=== PATIENT | male | born 1950 | race Caucasian/White ===

== ENCOUNTER → 2023-11-29 11:45 | Outpatient (REF) | payer BC, SELFPAY ==
[2023-11-29 14:09] LABS: % Basophils 0.9 % (0-2); % Eosinophils 4.2 % (0-6); % Immature Granulocytes 0.6 % (0-0.5); % Lymphocytes 26.9 % (20.5-51.1); % Monocytes 8.5 % (1.7-9.3); % Neutrophils 58.9 % (42.2-75.2); Absolute Basophils 0.1 10^3/uL (0-0.2); Absolute Eosinophils 0.4 10^3/uL (0-0.7); Absolute Immature Granulocytes 0.1 10^3/uL (0-0.05); Absolute Lymphocytes 2.8 10^3/uL (1.2-3.4); Absolute Monocytes 0.9 10^3/uL (0.1-0.6); Absolute Neutrophils 6.1 10^3/uL (1.4-6.5); Hematocrit 48.2 % (39.0-52.0); Hemoglobin 15.4 g/dL (13.0-18.0); Mean Corpuscular Hgb 29.3 pg (27.0-31.0); Mean Corpuscular Volume 91.8 fL (80.0-94.0); Mean Platelet Volume 9.8 fL (7.4-10.4); Nucleated Red Blood Cells % 0 % (-); Platelet Count 295 10^3/uL (130-400); Red Blood Cell Count 5.25 10^6/uL (4.70-6.10); Red Cell Dist. Width 14.4 % (11.5-14.5); White Blood Cell Count 10.4 10^3/uL (4.8-10.8)
== END ==
LOC: REG 11:45
PROVIDERS: ATTENDING PHYSICIAN Family Medicine
DX: R79.89 Other specified abnormal findings of blood chemistry (principal)
CPT/HCPCS: 36415; 85025

== ENCOUNTER → 2024-06-27 08:40 | Outpatient (REF) | payer BC, SELFPAY ==
[2024-06-27 09:18] LABS: % Basophils 0.9 % (0-2); % Eosinophils 5.7 % (0-6); % Immature Granulocytes 0.3 % (0-0.5); % Lymphocytes 25.1 % (20.5-51.1); % Monocytes 7.7 % (1.7-9.3); % Neutrophils 60.3 % (42.2-75.2); Absolute Basophils 0.1 10^3/uL (0-0.2); Absolute Eosinophils 0.5 10^3/uL (0-0.7); Absolute Lymphocytes 2.3 10^3/uL (1.2-3.4); Absolute Monocytes 0.7 10^3/uL (0.1-0.6); Absolute Neutrophils 5.5 10^3/uL (1.4-6.5); Hematocrit 47.7 % (39.0-52.0); Hemoglobin 15.6 g/dL (13.0-18.0); Mean Corp Hgb Conc. 32.7 g/dL (33.0-37.0); Mean Corpuscular Hgb 30.5 pg (27.0-31.0); Mean Corpuscular Volume 93.3 fL (80.0-94.0); Mean Platelet Volume 9.6 fL (7.4-10.4); Nucleated Red Blood Cells % 0 % (-); Platelet Count 273 10^3/uL (130-400); Red Blood Cell Count 5.11 10^6/uL (4.70-6.10); White Blood Cell Count 9.1 10^3/uL (4.8-10.8)
[2024-06-27 10:13] LABS: ALT (SGPT) 23 U/L (0-50); AST (SGOT) 26 U/L (17-59); Albumin 4.5 g/dl (3.5-5.0); Alkaline Phosphatase 81 U/L (38-126); Blood Urea Nitrogen 16 mg/dl (9-20); Calcium 10.1 mg/dl (8.4-10.2); Carbon Dioxide 27 mmol/L (22-30); Chloride 103 mmol/L (98-107); Glucose 120 mg/dl (70-99); HDL Cholesterol 40 mg/dl; LDL Cholesterol, Calculated 68 mg/dl; Potassium 4.8 mmol/L (3.5-5.1); Sodium 143 mmol/L (135-145); Total Bilirubin 0.6 mg/dl (0.2-1.3); Total Cholesterol 151 mg/dl (50-199); Total Protein 7.1 g/dl (6.3-8.2); Triglyceride 217 mg/dl (10-149); Very Low Density Lipoprotein 43 mg/dl (0-30); eGFR > 60.00
[2024-06-27 10:52] LABS: Glycohemoglobin (HgbA1c) 6.1 % (4.0-5.6)
[2024-06-29 02:45] LABS: PSA Total 0.7 ng/mL (0.0-4.0)
== END ==
LOC: REG 08:40
PROVIDERS: ATTENDING PHYSICIAN Family Medicine
DX: R73.03 Prediabetes (principal); E78.5 Hyperlipidemia, unspecified; Z12.5 Encounter for screening for malignant neoplasm of prostate; R79.89 Other specified abnormal findings of blood chemistry
CPT/HCPCS: 36415; 80053; 80061; 83036; 84153; 84154; 85025

== ENCOUNTER → 2024-09-30 14:38 | Outpatient (REF) | payer BC, SELFPAY | LOC: RAD 14:38 | PROVIDERS: ATTENDING PHYSICIAN Student in an Organized Health Care Education/Training Program; FAMILY PHYSICIAN Family Medicine | DX: I25.10 Atherosclerotic heart disease of native coronary artery without angina pectoris (principal); M62.89 Other specified disorders of muscle | CPT/HCPCS: 93922 ==

== ENCOUNTER → 2024-10-18 14:06 | Outpatient (REF) | payer BC, SELFPAY | LOC: RAD 14:06 | PROVIDERS: ATTENDING PHYSICIAN Student in an Organized Health Care Education/Training Program; FAMILY PHYSICIAN Family Medicine | DX: M62.89 Other specified disorders of muscle (principal) | CPT/HCPCS: 93925 ==

== ENCOUNTER → 2024-11-05 10:40 | Outpatient (REF) | payer BC, MEDICARE, SELFPAY ==
[2024-11-05 12:20] LABS: Blood Urea Nitrogen 15 mg/dl (9-20); Calcium 9.9 mg/dl (8.4-10.2); Carbon Dioxide 25 mmol/L (22-30); Chloride 102 mmol/L (98-107); Glucose 167 mg/dl (70-99); Potassium 4.1 mmol/L (3.5-5.1); Sodium 138 mmol/L (135-145); eGFR > 60.00
== END ==
LOC: REG 10:40
PROVIDERS: ATTENDING PHYSICIAN Surgery Vascular Surgery; FAMILY PHYSICIAN Family Medicine
DX: I73.9 Peripheral vascular disease, unspecified (principal)
CPT/HCPCS: 36415; 80048

== ENCOUNTER → 2024-11-19 08:27 | Outpatient (REF) | payer BC, MEDICARE, SELFPAY | LOC: RAD 08:27 | PROVIDERS: ATTENDING PHYSICIAN Surgery Vascular Surgery; FAMILY PHYSICIAN Family Medicine | DX: I73.9 Peripheral vascular disease, unspecified (principal) | CPT/HCPCS: 75635; Q9967 ==

== ENCOUNTER 2024-12-25 09:28 | Day surgery (SDC) | payer BC, MEDICARE, SELFPAY ==
[2024-12-25] VITALS (28 sets, daily range): BP systolic 110–149; BP diastolic 55–94; BMI 27.8
--- NOTE | 2024-12-25 09:57 | W.SUR.PREOP ---
Pre-Operative Surgical Note
-
I have examined this patient prior to the performance of the scheduled procedure.
The patient's condition is unchanged from the time of the current History and
Physical and the patient is able to undergo the scheduled procedure.
[2024-12-25] MEDS: NSS 500 IV (10:05)
[2024-12-25 10:16] LABS: Hematocrit 47.7 % (39.0-52.0); Hemoglobin 15.7 g/dL (13.0-18.0); Mean Corp Hgb Conc. 32.9 g/dL (33.0-37.0); Mean Corpuscular Hgb 30.4 pg (27.0-31.0); Mean Corpuscular Volume 92.3 fL (80.0-94.0); Mean Platelet Volume 9.4 fL (7.4-10.4); Platelet Count 293 10^3/uL (130-400); Red Blood Cell Count 5.17 10^6/uL (4.70-6.10); Red Cell Dist. Width 14.1 % (11.5-14.5); White Blood Cell Count 10.4 10^3/uL (4.8-10.8)
[2024-12-25 10:26] LABS: APTT 30.8 Sec (23.4-35.0); INR 0.88; PT 12.4 Sec (11.4-14.6)
[2024-12-25 10:31] LABS: Blood Urea Nitrogen 15 mg/dl (9-20); Calcium 9.9 mg/dl (8.4-10.2); Carbon Dioxide 26 mmol/L (22-30); Chloride 107 mmol/L (98-107); Estimated Creatinine Clearance 48 ml/min; Glucose 114 mg/dl (70-99); Potassium 4.3 mmol/L (3.5-5.1); Sodium 143 mmol/L (135-145); eGFR > 60.00
--- NOTE | 2024-12-25 11:27 | W.SUR.POST ---
Surgical Immediate Post Op
Note
Pre Op Diagnosis: PAD
Post Op Diagnosis: PAD
Procedure Performed: Aortogram, right common iliac artery angioplasty/stent and external iliac artery angioplasty/stent with [place] VBX
Primary Surgeon: Shahab
Anesthesia: Local and sedation
Estimated Blood Loss: Less than 2 cc
Fluids: See anesthesia flowsheet
Drains/Shunts: None
Specimens/Cultures: None
Doppler/Duplex/Angio (Y/N): Y
Complications: None
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
--- NOTE | 2024-12-25 11:51 | OR.RPT ---
Operative Report
Operative Report
PROCEDURE DATE: 12/25/2024
Preoperative diagnosis: Debilitating right buttock/thigh claudication.
Postoperative diagnosis: Same
Procedure:
1. Duplex assisted cannulation right common femoral artery.
2. Aortogram and pelvic angiogram.
3. Balloon angioplasty and stent placement with [place] VBX covered stent 8 mm x 59 mm right common iliac artery.
4. Balloon angioplasty and stent placement with [place] VBX covered stent 7 mm x 39 mm right external iliac artery.
5. Right femoral angiogram.
6. Supervision and interpretation.
Surgeon: Gudino
Top Lift Nailer: None
Complications: None
Anesthesia: Local, sedation
Fluoroscopy:
35 min
105 mGy
13.80 gy.cm2
Indications for procedure:
Severe right buttock thigh claudication especially when walking uphill or brisker places. CT angiogram demonstrated inflow right common and external iliac stenosis. Risk/benefits/alternatives of angiography fully discussed. Patient understood all
wished to proceed.
Description of procedure:
Patient was identified, brought to the operating room. Placed on the table in the supine position. After the adequate administration of anesthesia, the patient was prepped and draped in the standard surgical fashion. A standard preoperative
timeout was undertaken and everybody was in agreement with the plan.
The right common femoral artery was accessed with a micropuncture kit under direct duplex ultrasound guidance. A 5 [place] sheath was then advanced over a 0.035 inch wire. Initially I performed a retrograde injection through the sheath.
Demonstrated likely external iliac artery stenosis around the sheath. I could not get contrast to reflux into the proximal common iliac artery. At this point, a barroso's hook catheter was advanced into the abdominal aorta. Aortogram and pelvic
angiogram was obtained. Findings as follows:
Infrarenal aorta: Patent distal infrarenal aorta with no significant stenosis.
Right common iliac artery: Patent with luminal irregularity, may be mild stenosis proximally near the origin, but then about 2 cm beyond the origin there was a severe focal stenosis.
Right external iliac artery: Patent, diffusely small, but at the very distal external iliac artery there was a severe stenosis such that the sheath was even occlusive.
Left common iliac artery: Patent with no significant stenosis.
Left external iliac artery: Not as well-visualized in this projection.
At this point, I exchanged for a Storq wire into the abdominal aorta. I used a marker pigtail to ahsan the length of stent I would need. I elected to stent from the origin of the common iliac artery to beyond the area of stenosis, taking care to
preserve the internal iliac artery (which was heavily diseased). I therefore then exchanged for a 7 [place] sheath (23 cm length so it is advanced just into the aorta). The patient had already been given 5000's of intravenous heparin. I now used a
[place] VBX 8 mm x 59 mm covered stent. I positioned that into place and then withdrew my sheath. I then ballooned it into place (balloon mounted stent). Completion angiogram demonstrated excellent result. The top 1 mm of the stent flared slightly
onto the left common iliac artery, but did not cause any significant stenosis or impingement that would require kissing stent placement. (I also assessed and there was still a very strong good left common femoral pulse). At this point I withdrew
the sheath to the right common femoral artery. Performed angiogram again now that identified that the external iliac artery was diffusely small, this was seen on CAT scan as well. However, there was a focal high-grade stenosis in the distal
external iliac artery. Therefore I then used a [place] VBX 7 mm x 39 mm balloon mounted covered stent and positioned it in that vicinity and ballooned it into place. Completion angiogram now demonstrated an excellent result. Complete resolution of
stenoses. The intervening segment of external iliac artery is slightly small but no definitive stenosis. In addition I could palpate a common femoral pulse now. At this point is very satisfied. Wires and catheters were withdrawn. Protamine was
given reverse the heparin. The sheath was withdrawn and manual pressure was applied. Hemostasis was fully achieved.
The patient tolerated procedure well. He had a palpable right dorsalis pedis pulse upon completion.
[2024-12-25] MEDS: NSS 1000 IV (13:10)
== END 2024-12-25 17:50 | disposition home or self-care (01) ==
LOC: CATH 09:28
PROVIDERS: ATTENDING PHYSICIAN Surgery Vascular Surgery; OTHER PHYSICIAN Student in an Organized Health Care Education/Training Program; PRIMARYCARE PHYSICIAN Family Medicine
DX: I70.211 Atherosclerosis of native arteries of extremities with intermittent claudication, right leg (principal); Z79.02 Long term (current) use of antithrombotics/antiplatelets; Z79.82 Long term (current) use of aspirin; Z79.899 Other long term (current) drug therapy; I10 Essential (primary) hypertension; E78.00 Pure hypercholesterolemia, unspecified; Z86.73 Personal history of transient ischemic attack (TIA), and cerebral infarction without residual deficits; R73.03 Prediabetes; Z86.0100 Personal history of colon polyps, unspecified; I25.10 Atherosclerotic heart disease of native coronary artery without angina pectoris
CPT/HCPCS: 37221; 37223; 75630; 80048; 85027; 85610; 85730; 86850; 86900; 86901; C1769; C1874; C1894; Q9967

== ENCOUNTER → 2025-01-24 08:09 | Outpatient (REF) | payer BC, SELFPAY | LOC: RAD 08:09 | PROVIDERS: ATTENDING PHYSICIAN Surgery Vascular Surgery; FAMILY PHYSICIAN Family Medicine | DX: I73.9 Peripheral vascular disease, unspecified (principal) | CPT/HCPCS: 93922; 93925; 93978 ==

== ENCOUNTER → 2025-02-18 09:58 | Outpatient (REF) | payer BC, SELFPAY | LOC: PAVMRI 09:58 | PROVIDERS: ATTENDING PHYSICIAN Physical Medicine & Rehabilitation; FAMILY PHYSICIAN Family Medicine | DX: M54.16 Radiculopathy, lumbar region (principal) | CPT/HCPCS: 72148 ==

== ENCOUNTER → 2025-05-01 12:33 | Outpatient (REF) | payer BC, MEDICARE, SELFPAY | LOC: EMG 12:33 | PROVIDERS: ATTENDING PHYSICIAN Orthopaedic Surgery; FAMILY PHYSICIAN Family Medicine | DX: R20.0 Anesthesia of skin (principal) | CPT/HCPCS: 95886; 95909 ==

== ENCOUNTER → 2025-06-05 06:42 | Outpatient (REF) | payer BC, MEDICARE, SELFPAY | LOC: PAVMRI 06:42 | PROVIDERS: ATTENDING PHYSICIAN Orthopaedic Surgery; FAMILY PHYSICIAN Family Medicine | DX: M54.12 Radiculopathy, cervical region (principal) | CPT/HCPCS: 72141 ==

== ENCOUNTER → 2025-06-30 08:42 | Outpatient (REF) | payer BC, SELFPAY ==
[2025-06-30 10:18] LABS: ALT (SGPT) 24 U/L (0-50); AST (SGOT) 26 U/L (17-59); Albumin 4.5 g/dl (3.5-5.0); Alkaline Phosphatase 85 U/L (38-126); Blood Urea Nitrogen 17 mg/dl (9-20); Calcium 10.1 mg/dl (8.4-10.2); Carbon Dioxide 27 mmol/L (22-30); Chloride 103 mmol/L (98-107); Glucose 125 mg/dl (70-99); HDL Cholesterol 45 mg/dl; LDL Cholesterol, Calculated 80 mg/dl; Potassium 4.9 mmol/L (3.5-5.1); Sodium 138 mmol/L (135-145); Total Protein 7.4 g/dl (6.3-8.2); Uric Acid 5.4 mg/dl (3.5-8.5); Very Low Density Lipoprotein 41 mg/dl (0-30); eGFR > 60.00
[2025-06-30 11:37] LABS: Glycohemoglobin (HgbA1c) 6.1 % (4.0-5.9)
== END ==
LOC: REG 08:42
PROVIDERS: ATTENDING PHYSICIAN Family Medicine
DX: E78.5 Hyperlipidemia, unspecified (principal); R73.03 Prediabetes; I10 Essential (primary) hypertension; M1A.0790 Idiopathic chronic gout, unspecified ankle and foot, without tophus (tophi)
CPT/HCPCS: 36415; 80053; 80061; 83036; 84443; 84550

== ENCOUNTER → 2025-07-29 08:13 | Outpatient (REF) | payer BC, SELFPAY | LOC: RAD 08:13 | PROVIDERS: ATTENDING PHYSICIAN Registered Nurse; FAMILY PHYSICIAN Family Medicine | DX: I73.9 Peripheral vascular disease, unspecified (principal) | CPT/HCPCS: 88305; 93922; 93925; 93978 ==